=== PATIENT | male | born 1940 | race Caucasian/White ===

== ENCOUNTER 2017-07-03 12:38 | Observation (INO) | payer MEDICARE, BC ==
[~2017-07-03] VITALS: Ht 182.9 cm; Wt 93.5 kg
[2017-07-03 12:45] VITALS: BP 187/80
[2017-07-03] MEDS: SODIUM CHLORIDE 0.9% 1,000 ML IV SCH ×2 (13:46→21:16)
[2017-07-03] MEDS ORDERED: LIDOCAINE 2%, 20ML ONE ×2 (13:56→15:15)
[2017-07-03] MEDS ORDERED: CEFAZOLIN PMX 1GM/50ML 50 ML ONE (13:56)
[2017-07-03] MEDS ORDERED: FENTANYL PF 100 MCG/2ML ONE (13:56)
[2017-07-03] MEDS ORDERED: CEFAZOLIN 1,000 MG ONE (13:56)
[2017-07-03] MEDS ORDERED: MIDAZOLAM 1 MG/ML, 5ML ONE (13:56)
[2017-07-03] MEDS ORDERED: CEFAZOLIN PMX 1GM/50ML 50 ML IVPB ONE (14:00)
[2017-07-03] MEDS ORDERED: ONDANSETRON 2MG/ML, 2ML ONE (14:06)
[2017-07-03] MEDS ORDERED: LABETALOL 5MG/ML, 20ML ONE (15:11)
[2017-07-03] MEDS ORDERED: ZOLPIDEM 5MG TABLET PO PRN (15:30)
[2017-07-03] MEDS ORDERED: ONDANSETRON 2MG/ML, 2ML IV PRN (15:30)
[2017-07-03] MEDS ORDERED: HYDROcodone/APAP 5/325 TABLET PO PRN (15:30)
[2017-07-03] MEDS ORDERED: LABETALOL 5MG/ML, 20ML IVPush PRN (15:30)
[2017-07-03 16:00] VITALS: BP 166/81
[2017-07-03 21:05] VITALS: BP 141/84
[2017-07-03] MEDS: SODIUM CHLORIDE FLUSH 10ML SYR IVF SCH (21:16)
[2017-07-03] MEDS: CEFAZOLIN PMX 1GM/50ML 50 ML IVPB SCH (21:16)
[2017-07-04 01:45] VITALS: BP 139/79
[2017-07-04] MEDS: CEFAZOLIN PMX 1GM/50ML 50 ML IVPB SCH (05:41)
[2017-07-04] MEDS: SODIUM CHLORIDE 0.9% 1,000 ML IV SCH (05:41)
[2017-07-04] MEDS: SODIUM CHLORIDE FLUSH 10ML SYR IVF SCH (05:42)
[2017-07-04] MEDS ORDERED: PRIM250T PO (07:58)
[2017-07-04] MEDS ORDERED: NEBI5TAB2 PO (07:58)
[2017-07-04] MEDS ORDERED: POTA8CAP PO (07:58)
[2017-07-04] MEDS ORDERED: LISI1TAB7 PO (07:58)
[2017-07-04] MEDS ORDERED: NIFE60TA15 PO (07:58)
[2017-07-04 08:15] VITALS: BP_SYST 162; BP_SYST 164; BP_DIAS 83; BP_DIAS 91
[2017-07-04] MEDS ORDERED: RIVA20TA PO (08:44)
[2017-07-04] MEDS ORDERED: POTASSIUM CHLORIDE 8 MEQ TABLET.ER PO SCH (09:00)
[2017-07-04] MEDS ORDERED: HYDROCHLOROTHIAZIDE 25 MG TABLET PO SCH (09:00)
[2017-07-04] MEDS ORDERED: PRIMIDONE 50 MG TABLET PO SCH (09:00)
[2017-07-04] MEDS ORDERED: niFEDipine ER 60 MG TABLET.ER PO SCH (09:00)
[2017-07-04] MEDS ORDERED: NEBIVOLOL HCL 5 MG TABLET PO SCH (09:00)
[2017-07-04] MEDS ORDERED: LISINOPRIL 20 MG TABLET PO SCH (09:00)
[2017-07-04] MEDS ORDERED: PRIMIDONE 250 MG TABLET PO SCH (09:00)
== END 2017-07-04 10:41 | disposition home or self-care (01) ==
LOC: INTOOBSV 12:38 → 5SO 12:38 → EDSTATUS 14:00 → 5SO 17:47 → DCLOUNGE 07-04 10:25
PROVIDERS: ADMIT Internal Medicine Cardiovascular Disease; ATTEND Internal Medicine Cardiovascular Disease
DX: I49.5 Sick sinus syndrome (principal); R55 Syncope and collapse; I48.92 Unspecified atrial flutter; I10 Essential (primary) hypertension; D68.69 Other thrombophilia; E87.6 Hypokalemia; I48.91 Unspecified atrial fibrillation; R32 Unspecified urinary incontinence; Z82.49 Family history of ischemic heart disease and other diseases of the circulatory system
CPT/HCPCS: 33207; 71010; 96365; 96375; 99156; 99157; C1779; C1786; C1892; G0378; J0690; J2250; J2405; J3010; J3490; J7030

== ENCOUNTER 2017-08-09 06:30 | Observation (INO) | payer OTHER ==
[2017-08-08 14:42] VITALS: BP 194/106
[2017-08-08 14:53] LABS: HEMATOCRIT 43.7 % (39.2-51.8); HEMOGLOBIN 14.7 g/dL (13.7-18.0); WHITE BLOOD COUNT 7.9 x10^3/uL (3.4-10)
[2017-08-08 15:00] LABS: ASPARTATE AMINO TRANSFERASE 18 U/L (15-37); BLOOD UREA NITROGEN 23 mg/dL (7-18)
[~2017-08-09] VITALS: Ht 182.9 cm; Wt 81.3 kg
[~2017-08-09 06:30] MED LIST: LISI1TAB7 PO; NEBI5TAB2 PO; NIFE60TA15 PO; POTA8CAP PO; PRIM250T PO; RIVA20TA PO
[2017-08-09] MEDS ORDERED: SODIUM CHLORIDE 0.9% 1,000 ML IV SCH (07:00)
[2017-08-09] MEDS ORDERED: RIVA20TA PO (07:04)
[2017-08-09] MEDS ORDERED: LORazepam 2 MG/ML, 1ML ONE (07:53)
[2017-08-09] MEDS ORDERED: METOPROLOL 1 MG/ML, 5ML ONE ×2 (07:53→08:46)
[2017-08-09] MEDS ORDERED: METOPROLOL 1 MG/ML, 5ML IVPush PRN (08:00)
[2017-08-09] MEDS ORDERED: LORazepam 2 MG/ML, 1ML IVPush ONE (08:00)
[2017-08-09] MEDS ORDERED: FENTANYL PF 100 MCG/2ML ONE ×2 (08:07→08:53)
[2017-08-09] MEDS ORDERED: MIDAZOLAM 1 MG/ML, 5ML ONE (08:07)
[2017-08-09] MEDS ORDERED: ISOPROTERENOL 0.2MG/ML, 5ML ONE (08:08)
[2017-08-09] MEDS ORDERED: LIDOCAINE 2%, 20ML ONE ×2 (08:08→09:40)
[2017-08-09] MEDS ORDERED: HEPARIN 1,000 UNITS/ML, 10ML ONE (08:08)
[2017-08-09] MEDS ORDERED: NITROGLYCERIN 0.4 MG BOTTLE (25 TABS) SL ONE (09:21)
[2017-08-09] MEDS ORDERED: ENALAPRILAT 1.25 MG/ML, 2ML ONE ×2 (09:28)
[2017-08-09] MEDS ORDERED: CEFAZOLIN 1,000 MG ONE (09:40)
[2017-08-09] MEDS ORDERED: FENTANYL PF 250 MCG/5ML ONE (09:40)
[2017-08-09] MEDS ORDERED: CEFAZOLIN PMX 1GM/50ML 50 ML ONE (09:40)
[2017-08-09] MEDS ORDERED: LABETALOL 5MG/ML, 20ML ONE (10:55)
[2017-08-09] MEDS ORDERED: ACETAMINOPHEN 325 MG TABLET PO PRN (11:30)
[2017-08-09] MEDS ORDERED: HYDROcodone/APAP 5/325 TABLET PO PRN (11:30)
[2017-08-09] MEDS ORDERED: ZOLPIDEM 5MG TABLET PO PRN (11:30)
[2017-08-09 11:36] VITALS: BP 186/100
[2017-08-09] MEDS ORDERED: AMLODIPINE 5 MG TABLET PO ONE (12:00)
[2017-08-09] MEDS: SODIUM CHLORIDE 0.9% 1,000 ML IV SCH ×3 (12:40→22:59)
[2017-08-09] MEDS: LABETALOL 5MG/ML, 20ML IVPush PRN ×3 (12:45→16:55)
[2017-08-09 14:00] VITALS: BP 166/93
[2017-08-09] MEDS: CEFAZOLIN PMX 1GM/50ML 50 ML IVPB SCH (16:55)
[2017-08-09 19:30] VITALS: BP 142/77
[2017-08-09] MEDS: PRIMIDONE 250 MG TABLET PO SCH (20:21)
[2017-08-09] MEDS: NEBIVOLOL HCL 5 MG TABLET PO SCH (20:21)
[2017-08-09] MEDS: POTASSIUM CHLORIDE 8 MEQ TABLET.ER PO SCH (20:21)
[2017-08-09] MEDS: SODIUM CHLORIDE FLUSH 10ML SYR IVF SCH (20:22)
[2017-08-10] MEDS: CEFAZOLIN PMX 1GM/50ML 50 ML IVPB SCH (00:46)
[2017-08-10] MEDS: LABETALOL 5MG/ML, 20ML IVPush PRN ×2 (00:49→06:52)
[2017-08-10 00:52] VITALS: BP 174/94
[2017-08-10 01:58] VITALS: BP 160/92
[2017-08-10] MEDS: SODIUM CHLORIDE 0.9% 1,000 ML IV SCH (06:41)
[2017-08-10 06:42] VITALS: BP 184/87
[2017-08-10] MEDS ORDERED: NEBIVOLOL HCL 5 MG TABLET PO SCH (09:00)
[2017-08-10] MEDS ORDERED: HYDROCHLOROTHIAZIDE 25 MG TABLET PO SCH (09:00)
[2017-08-10] MEDS: NEBIVOLOL HCL 5 MG TABLET PO SCH (09:00)
[2017-08-10] MEDS ORDERED: LISINOPRIL 20 MG TABLET PO SCH (09:00)
[2017-08-10] MEDS ORDERED: niFEDipine ER 60 MG TABLET.ER PO SCH (09:00)
[2017-08-10 09:14] VITALS: BP 161/83
[2017-08-10] MEDS: POTASSIUM CHLORIDE 8 MEQ TABLET.ER PO SCH (09:23)
[2017-08-10] MEDS: SODIUM CHLORIDE FLUSH 10ML SYR IVF SCH (09:24)
[2017-08-10] MEDS ORDERED: NIFE90TA8 PO (09:53)
[2017-08-10] MEDS ORDERED: NEBI10TA3 PO (09:53)
[2017-08-10] MEDS: PRIMIDONE 250 MG TABLET PO SCH (10:17)
== END 2017-08-10 11:06 | disposition home or self-care (01) ==
LOC: CACL 06:30 → 5SO 11:06 → CACL 12:01
PROVIDERS: ADMIT Internal Medicine Cardiovascular Disease; ATTEND Internal Medicine Cardiovascular Disease
DX: I44.2 Atrioventricular block, complete (principal); I48.92 Unspecified atrial flutter; I10 Essential (primary) hypertension
CPT/HCPCS: 33216; 33228; 36005; 36415; 71010; 80053; 85025; 85610; 85730; 93613; 93621; 93653; 96365; 96375; 96376; 99156; 99157; C1730; C1731; C1766; C1779; C1785; C1892; C1894; C2630; G0378; J0690; J2060; J2250; J3010; J3490; Q9967; J1644

== ENCOUNTER 2020-04-19 07:42 | Observation (INO) | payer OTHER ==
[~2020-04-19] VITALS: Ht 182.9 cm; Wt 84.0 kg
[~2020-04-19 07:42] MED LIST changes: +LISI1TAB20 PO; -LISI1TAB7 PO; +NEBI10TA3 PO; -NEBI5TAB2 PO; +NEBI5TAB3 PO; +NIFE-6 PO; -NIFE60TA15 PO; +NIFE90TA8 PO; -POTA8CAP PO; +POTA8CAP20 PO
[2020-04-19] MEDS ORDERED: SODIUM CHLORIDE 0.9% 1,000 ML IV SCH (08:13)
[2020-04-19 08:18] VITALS: BP 173/104
[2020-04-19] MEDS ORDERED: CLON0.1T22 PO (08:34)
[2020-04-19 08:57] LABS: ANION GAP 9 mmol/L (5-15); CALCIUM 8.5 mg/dL (8.5-10.1); CHLORIDE 106 mmol/L (98-107); CREATININE 1.16 mg/dL (0.7-1.3)
[2020-04-19 09:45] LABS: ANISOCYTOSIS 1+; BASOPHILS # (AUTO) 0.05 x10^3/uL (0-0.1); BASOPHILS % (AUTO) 1 % (0-1); EOSINOPHILS # (AUTO) 0.38 x10^3/uL (0-0.4); EOSINOPHILS % (AUTO) 8 % (1-7); LYMPHOCYTES # (AUTO) 1.58 x10^3/uL (1-3.4); LYMPHOCYTES % (AUTO) 32 % (22-44); MD MORPH REVIEW ONLY; MEAN CORPUSCULAR HEMOGLOBIN 33.5 pg (27.5-34.5); MEAN CORPUSCULAR HGB CONC 33.3 g/dL (33.2-36.2); MEAN CORPUSCULAR VOLUME 100.4 fL (81-97); MEAN PLATELET VOLUME 8.5 fL (7.4-10.4); MONOCYTES # (AUTO) 0.49 x10^3/uL (0.2-0.8); MONOCYTES % (AUTO) 10 % (2-9); NEUTROPHILS # (AUTO) 2.47 x10^3/uL (1.8-6.8); NEUTROPHILS % (AUTO) 50 % (42-75); PLATELET COUNT 218 x10^3/uL (130-400); RED BLOOD COUNT 4.05 x10^6/uL (4.38-5.82); RED CELL DISTRIBUTION WIDTH 16.3 % (9.4-14.8)
[2020-04-19 09:46] LABS: <PLATELET ESTIMATE> ADEQUATE; LARGE PLATELETS 1+
[2020-04-19] MEDS ORDERED: MIDAZOLAM 1 MG/ML, 5ML ONE (11:23)
[2020-04-19] MEDS ORDERED: FENTANYL PF 100 MCG/2ML ONE (11:23)
[2020-04-19] MEDS ORDERED: CEFAZOLIN PMX 1GM/50ML 50 ML ONE (11:23)
[2020-04-19] MEDS ORDERED: LIDOCAINE 2%, 20ML ONE (11:23)
[2020-04-19] MEDS ORDERED: CEFAZOLIN 1,000 MG ONE (11:23)
[2020-04-19 12:15] VITALS: BP 194/89
[2020-04-19] MEDS ORDERED: HOLD MEDICATION MC PRN (13:00)
[2020-04-19] MEDS ORDERED: ACETAMINOPHEN 325 MG TABLET PO PRN (13:00)
[2020-04-19] MEDS: hydrALAzine 20 MG/ML, 1ML IV PRN ×2 (16:40→18:02)
[2020-04-19 19:37] VITALS: BP 179/89
[2020-04-19] MEDS: CEFAZOLIN PMX 1GM/50ML 50 ML IVPB SCH (19:40)
[2020-04-19] MEDS: NEBIVOLOL HCL 5 MG TABLET PO SCH ×2 (19:41→20:40)
[2020-04-19] MEDS: PRIMIDONE 250 MG TABLET PO SCH (20:55)
[2020-04-19] MEDS: POTASSIUM CHLORIDE 8 MEQ TABLET.ER PO SCH (20:56)
[2020-04-19] MEDS: SODIUM CHLORIDE FLUSH 10ML SYR IVF SCH (20:56)
[2020-04-20 01:05] VITALS: BP 174/87
[2020-04-20] MEDS: CEFAZOLIN PMX 1GM/50ML 50 ML IVPB SCH ×2 (03:44→20:09)
[2020-04-20 07:11] VITALS: BP 192/93
[2020-04-20] MEDS: HYDROCHLOROTHIAZIDE 25 MG TABLET PO SCH (07:21)
[2020-04-20] MEDS: LISINOPRIL 10 MG TABLET PO SCH (07:21)
[2020-04-20] MEDS: niFEDipine ER 90 MG TAB.ER.24 PO SCH (07:22)
[2020-04-20] MEDS: PRIMIDONE 250 MG TABLET PO SCH ×2 (07:22→20:27)
[2020-04-20] MEDS: POTASSIUM CHLORIDE 8 MEQ TABLET.ER PO SCH ×2 (07:22→20:27)
[2020-04-20] MEDS: NEBIVOLOL HCL 5 MG TABLET PO SCH ×2 (07:23→20:27)
[2020-04-20] MEDS: SODIUM CHLORIDE FLUSH 10ML SYR IVF SCH ×3 (07:23→21:00)
[2020-04-20] MEDS ORDERED: NEBIVOLOL HCL 5 MG TABLET PO SCH (09:00)
[2020-04-20] MEDS ORDERED: LIDOCAINE 2%, 20ML ONE (09:40)
[2020-04-20] MEDS ORDERED: FENTANYL PF 100 MCG/2ML ONE (09:40)
[2020-04-20] MEDS ORDERED: CEFAZOLIN PMX 1GM/50ML 50 ML ONE (09:40)
[2020-04-20] MEDS ORDERED: MIDAZOLAM 1 MG/ML, 5ML ONE (09:40)
[2020-04-20] MEDS ORDERED: CEFAZOLIN 1,000 MG ONE (09:40)
[2020-04-20] MEDS ORDERED: LIDOCAINE 1%, 20ML ONE ×2 (10:42→10:49)
[2020-04-20] MEDS ORDERED: HOLD MEDICATION MC PRN (11:30)
[2020-04-20 13:24] VITALS: BP 158/84
[2020-04-20] MEDS ORDERED: MELATONIN 3 MG TABLET PO SCH (20:00)
[2020-04-20 20:22] VITALS: BP 203/95
[2020-04-21 02:04] VITALS: BP 170/97
[2020-04-21] MEDS: CEFAZOLIN PMX 1GM/50ML 50 ML IVPB SCH (03:20)
[2020-04-21 06:45] VITALS: BP 196/86
[2020-04-21] MEDS: LISINOPRIL 10 MG TABLET PO SCH (07:27)
[2020-04-21] MEDS: niFEDipine ER 90 MG TAB.ER.24 PO SCH (07:27)
[2020-04-21] MEDS: PRIMIDONE 250 MG TABLET PO SCH (07:27)
[2020-04-21] MEDS: POTASSIUM CHLORIDE 8 MEQ TABLET.ER PO SCH (07:27)
[2020-04-21] MEDS: HYDROCHLOROTHIAZIDE 25 MG TABLET PO SCH (07:28)
[2020-04-21] MEDS: NEBIVOLOL HCL 5 MG TABLET PO SCH (07:30)
[2020-04-21] MEDS ORDERED: ACET325T26 PO (08:52)
[2020-04-21] MEDS: SODIUM CHLORIDE FLUSH 10ML SYR IVF SCH ×2 (09:00)
== END 2020-04-21 10:40 | disposition home or self-care (01) ==
LOC: CACL 07:42 → 5SO 12:37 → DCLOUNGE 04-21 10:37
PROVIDERS: ADMIT Internal Medicine Cardiovascular Disease; ATTEND Internal Medicine Cardiovascular Disease
DX: I10 Essential (primary) hypertension (principal); T82.120A Displacement of cardiac electrode, initial encounter; I48.92 Unspecified atrial flutter; I48.91 Unspecified atrial fibrillation; I49.5 Sick sinus syndrome; Z79.82 Long term (current) use of aspirin; Z79.899 Other long term (current) drug therapy; Z95.0 Presence of cardiac pacemaker
CPT/HCPCS: 33216; 33222; 33228; 36005; 36415; 71045; 80048; 85025; 96365; 96366; 96375; 96376; 99156; 99157; C1779; C1785; C1892; C1894; G0378; J0360; J0690; J2250; J3010; J3490; Q9967